=== PATIENT | male | born 1995 | race Caucasian/White ===

== ENCOUNTER 2017-05-28 01:38 | Emergency (ER) | payer OTHER ==
[~2017-05-28] VITALS: Ht 182.9 cm; Wt 92.2 kg
[2017-05-28 01:44] VITALS: TEMP 36.7; Ht 182.9 cm; Wt 92.2 kg
[2017-05-28] MEDS ORDERED: ALBUTEROL HFA 8 GM INHALER INH STA (01:49)
[2017-05-28] MEDS ORDERED: ALBUT/IPRATROP 3MG/0.5MG NEB 3 ML VIAL INH STA (01:49)
[2017-05-28] MEDS ORDERED: DEXAMETHASONE **PF** INJ 10 MG/ML VIAL PO ONE (02:00)
[2017-05-28] MEDS ORDERED: VNTHFA/IN INH (02:12)
[2017-05-28] MEDS ORDERED: PRED50TA PO (02:41)
--- NOTE | 2017-05-28 02:47 | EMERGENCY ROOM VISIT NOTE ---
History First contact with patient: 01:47 Chief Complaint: RESPIRATORY PROBLEMS Stated Complaint: ASTHMA History of Present Illness The patient is a 21 year old male who presents to the Emergency Room with complaints of cough and wheezing for the past day. Patient was sick recently. Patient denies productive cough, chest pain, fever, chills, flulike illness. He is out of his inhaler. Review of Systems An 10 system review of systems was completed with positives and pertinent negatives listed in the HPI. Past Medical/Surgical History Asthma Social History Smoking Status: Former Smoker Drug Use: none Occupation Status: employed Current/Historical Medications Scheduled Prednisone (Prednisone), 50 MG PO DAILY Scheduled PRN Albuterol Hfa (Ventolin Hfa), 2 PUFFS INH DIRECTED PRN for Shortness of Breath Physical Exam Vital Signs Date Time Temp Pulse Resp B/P (MAP) Pulse Ox O2 Delivery O2 Flow Rate FiO2 05/28/17 01:55 Room Air 05/28/17 01:44 36.7 86 18 128/83 99 Room Air Physical Exam PHYSICAL EXAM: Vital Signs: Reviewed Nurse's notes. Oxygen saturation was 99% on room air. GENERAL: Pleasant male, Alert, oriented and coherent. The patient is able to speak in complete sentences. NECK: Supple, non-tender. CHEST: Symmetrical expansion. no retractions no accessory muscle use. HEART: Regular rate and normal heart sounds, no murmur, gallop or rub. LUNGS: Breath sounds equal but significantly diminished in intensity on both sides. Bilateral wheezes heard but no rales or pleuritic rub. SKIN: The skin was without rashes, erythema, edema, or bruising. There is no tenting of the skin. Capillary reflex less than 2 seconds. HEAD: Normocephalic atraumatic. EARS: External auditory canals clear, tympanic membranes pearly beltran without erythema or effusion bilaterally. EYES: Pupils equal round and reactive to light and accommodation. Conjunctivae without injection, sclerae without icterus. Extraocular movements intact. NOSE: Patent, turbinates without inflammation or discharge. No sinus tenderness. MOUTH: Mucous membranes moist. Pharynx without erythema or exudate. Uvula midline. Airway patent. Tongue does not deviate. ABDOMEN: Positive bowel sounds x 4. Normal tympanic percussion. Soft, nontender, without masses or organomegaly. Bergeron sign negative. No guarding or rebound tenderness. MUSCULOSKELETAL: No muscle atrophy, erythema, or edema noted. NEURO: Patient was alert and oriented to person place and time. Normal sensation to light and sharp touch. No focal neurological deficits. EMERGENCY DEPARTMENT COURSE: I examined the patient. The patient was given an albuterol/atrovent nebulizer treatment and had good improvement in the subjective state, and the breath sounds were louder and clearer on re-exam. Wheezes were decreased. []. The patient was discharged in stable condition. DIAGNOSIS: Acute asthma exacerbation DISCHARGE INSTRUCTIONS AND TREATMENT: Prednisone 50 mg each day for 4 more days. Albuterol as needed for cough. Continue on her current medications. Followup with family in one to 2 days. Return to ER sooner for fever, worsening signs or symptoms.I Medical Decision & Procedures Medications Administered Medications (Trade) Dose Ordered Sig/Ashish Route Start Time Stop Time Status Last Admin Dose Admin Albuterol/ Ipratropium (Duoneb) 3 ml NOW STAT INH 05/28/17 01:49 05/28/17 01:50 DC 05/28/17 02:02 3 ML Albuterol (Ventolin Hfa Inhaler) 2 puffs ONE STAT INH 05/28/17 01:49 05/28/17 01:50 DC 05/28/17 02:01 2 PUFFS Dexamethasone Sodium Phosphate (Dexamethasone Inj Pf) 10 mg NOW ONCE PO 05/28/17 02:00 05/28/17 02:01 DC 05/28/17 02:01 10 MG ED Course Prior records/ancillary studies reviewed. Triage Nursing notes reviewed. The patient's history was concerning for respiratory difficulties. Differential diagnosis: Etiologies such as infections, reactive airway disease, pneumonia, pneumothorax , COPD, CHF, cardiac ischemia, pulmonary embolism, musculoskeletal, gastrointestinal, as well as others were entertained. Physical examination: As above. ER treatment provided: Nebulizer, Decadron, albuterol On reassessment the patient felt better. Diagnostic interpretation by me: Deferred This appears to be consistent with asthma exacerbation. Patient was recently sick. He is currently afebrile and nontoxic. Pulse ox is 99%. Nonproductive cough. Patient felt much better after being medicated as above. He is no longer wheezing. He was advised to take medicines as directed, rest, stay well- hydrated follow-up family can a few days or here in the ER sooner for chest pain , difficulty breathing, fevers, worsening signs or symptoms or as needed.. By the evaluation outlined above emergent etiologies such as CHF, cardiac ischemia , pulmonary embolism, pneumonia, pneumothorax, musculoskeletal, serious bacterial infections, as well as others were deemed relatively unlikely. The pt informed about the findings as listed above. All questions were answered and pleased with the treatment. Return instructions were outlined and the patient was discharged in stable condition. Outpatient prescription management: Prednisone Referral: The patient was referred back to their primary care physician for follow-up in 2 to 3 days for a recheck of the current condition. The chart was completed utilizing [id number] Speech voice recognition software. Grammatical errors, random word insertions, pronoun errors, and incomplete sentences are an occassional consequence of this system due to software limitations, ambient noise, and hardware issues. Any formal questions or concerns about the content, text, or information contained within the body of this dictation should be directly addressed to the physician assistant women's rowing coach for clarification. Medical Decision as above Medication Reconcilliation Current Medication List: was personally reviewed by me Blood Pressure Screening Patient's blood pressure: Normal blood pressure Impression Primary Impression: Asthma exacerbation Departure Information Dispostion Home / Self-Care Condition GOOD Prescriptions Prednisone (Prednisone) 50 Mg Tab 50 MG PO DAILY for 4 Days, #4 TAB Prov: Susanne Longoria .VENKATA 05/28/17 Forms WORK / SCHOOL INSTRUCTIONS, HOME CARE DOCUMENTATION FORM, IMPORTANT VISIT INFORMATION Patient Instructions Asthma - [facility], [facility] Additional Instructions Albuterol Inhaler: Take 2 puffs four times daily for five days, then as needed. Prednisone 50mg: Once daily until the prescription is finished. It is best to take this earlier in the day as some patients note occasional difficulty falling asleep when taken in the late evening. Acetaminophen(Tylenol) may be used for fever or pain. Use 1000mg every six hours as needed. Avoid using more than 3000mg in a 24 hour period. (AND/OR) Ibuprofen(Motrin, Advil) may be used for fever or pain. Use 600mg every six hours as needed. Take with food. Avoid using more than 2400mg in a 24 hour period. Do not use 2400mg per day for more than three consecutive days without physician direction. Prolonged inappropriate use can lead to stomach upset or ulcers. Rest and drink plenty of fluids. Avoid smoke/smoking, fumes, dust, or any triggers in the past that may have affected your breathing. Continue current medications. Return to the ER for chest pain, difficulty breathing, fevers, vomiting, worsening of your condition, or as needed. Follow up with your primary physician this week for a recheck of your current condition. Problem Qualifiers Primary Impression: Asthma exacerbation Asthma severity: moderate Asthma persistence: persistent Qualified Codes: J45.41 - Moderate persistent asthma with (acute) exacerbation
[2017-05-28 02:56] VITALS: BP 123/81; PULSE 72; O2SAT 96
== END 2017-05-28 02:57 | disposition home or self-care (01) ==
LOC: C.EDB 01:40
DX: J45.41 Moderate persistent asthma with (acute) exacerbation (principal); Z87.891 Personal history of nicotine dependence

== ENCOUNTER 2017-06-24 16:53 | Emergency (ER) | payer OTHER ==
[~2017-06-24] VITALS: Ht 182.9 cm; Wt 90.0 kg
[~2017-06-24 16:53] MED LIST: VNTHFA/IN INH
[2017-06-24 16:56] VITALS: TEMP 36.7; Ht 182.9 cm; Wt 90.0 kg
--- NOTE | 2017-06-24 18:33 | DIAGNOSTIC IMAGING REPORT ---
L-SPINE MIN 4 VIEWS ROUTINE CLINICAL HISTORY: 21 years-old Male presenting with LBP s/p fall. TECHNIQUE: Frontal, bilateral oblique, and lateral views of the lumbar spine were obtained. COMPARISON: None. FINDINGS: No significant scoliosis. Normal lumbar lordosis. Vertebral bodies maintain normal height and alignment. Intervertebral disc heights preserved no significant degenerative change. No compression deformity or evidence of subluxation. No pars defect. IMPRESSION: Normal lumbar spine. Electronically signed by: Esteban Payne M.D. 06/24/2017 6:32 PM Dictated Date/Time: 06/24/2017 6:30 PM
[2017-06-24] MEDS ORDERED: VNTHFA/IN INH (18:55)
[2017-06-24] MEDS ORDERED: CYCL10TA6 PO (18:55)
[2017-06-24] MEDS ORDERED: FLEXERIL HOME PACK 10 MG VIAL PO ONE (19:00)
[2017-06-24 19:14] VITALS: BP 123/74; PULSE 102; O2SAT 94
--- NOTE | 2017-06-24 19:39 | EMERGENCY ROOM VISIT NOTE ---
History First contact with patient: 17:57 Chief Complaint: BACK PAIN Stated Complaint: LOWER BACK PAIN History of Present Illness The patient is a 21 year old male who presents to the Emergency Room with complaints of lower back pain after slipping and falling down steps at work last Sunday between 6 and 7 PM. The patient reports that he was carrying food down steps when he slipped and fell directly on his buttocks. The patient reports persistent pain. The patient reports that he did feel little bit better this morning, and as he was cleaning his vehicle, he reports abrupt onset of discomfort and pain with movement. He currently reports some mild burning and paresthesias through bilateral buttocks and posterior thighs. The pain does not radiate below the knees. He reports that the pain feels like it is spreading across the lower back and slightly into the middle back region. He denies any worsening pain with bowel movements. He denies any bladder or bowel incontinence, saddle anesthesias or lower extremity weakness. He denies any prior history of back issues, and rates his discomfort an 8 out of 10. 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 Review of Systems 10 system review was performed and was negative except for pertinent positives and negatives as indicated in history of present illness Past Medical/Surgical History Medical Problems: (1) Asthma (2) Personal History Of Nicotine Dependence Surgical Problems: (1) No history of previous surgery Family History Unremarkable Social History Smoking Status: Former Smoker Alcohol Use: occasionally Drug Use: none Marital Status: single Occupation Status: employed Current/Historical Medications Scheduled Albuterol Hfa (Ventolin Hfa), 2 PUFFS INH QID Scheduled PRN Albuterol Hfa (Ventolin Hfa), 2 PUFFS INH DIRECTED PRN for Shortness of Breath Cyclobenzaprine Hcl (Flexeril), 10 MG PO TID PRN for spasm Physical Exam Vital Signs Date Time Temp Pulse Resp B/P (MAP) Pulse Ox O2 Delivery O2 Flow Rate FiO2 06/24/17 19:14 102 16 123/74 94 06/24/17 16:56 36.7 102 16 123/74 94 Room Air Physical Exam CONSTITUTIONAL: Healthy and well nourished. Alert and oriented X 3 with positive affect. Patient appears in mild discomfort. HEENT: Normocephalic, atraumatic. Pupils equal, round and reactive. NECK: Full active range of motion without discomfort. RESPIRATORY: Clear to auscultation bilaterally with no wheezing, crackles, rhonchi or stridor. CARDIOVASCULAR: Regular rate and rhythm with no murmurs, rubs or gallops. GASTROINTESTINAL: Bowel sounds present in all quadrants. Soft and nontender to palpation. MUSCULOSKELETAL: Examination shows mild tenderness to palpation through the lower lumbar paraspinous muscles, central lumbar spine, SI joints and sciatic notches. Negative logroll. Positive straight leg raise. Ankle plantar/ dorsiflexion strength is 5 out of 5 and symmetric bilaterally. INTEGUMENTARY: No rash or other significant dermatologic conditions noted. NEUROLOGIC: Cranial nerves II-XII grossly intact. No focal neurologic deficits noted. Lower extremity deep tendon reflexes are 2+ and symmetric bilaterally. Feet and toes are sensory intact. Medical Decision & Procedures ER Provider Diagnostic Interpretation: My interpretation of lumbar spine x-rays does not show any acute fractures, spondylolisthesis or lordotic reversal. Radiologist report is as follows: L-SPINE MIN 4 VIEWS ROUTINE CLINICAL HISTORY: 21 years-old Male presenting with LBP s/p fall. TECHNIQUE: Frontal, bilateral oblique, and lateral views of the lumbar spine were obtained. COMPARISON: None. FINDINGS: No significant scoliosis. Normal lumbar lordosis. Vertebral bodies maintain normal height and alignment. Intervertebral disc heights preserved no significant degenerative change. No compression deformity or evidence of subluxation. No pars defect. IMPRESSION: Normal lumbar spine. Medications Administered Medications (Trade) Dose Ordered Sig/Ashish Route Start Time Stop Time Status Last Admin Dose Admin Cyclobenzaprine HCl (FLEXERIL 10MG Home Pack) 1 homepack UD ONCE PO 06/24/17 19:00 06/24/17 19:01 DC 06/24/17 19:05 1 HOMEPACK ED Course Patient history and physical exam were performed. Nurse's notes were reviewed. Vital signs were reviewed and were normal. The patient refused any analgesics on initial exam. X-rays of the lumbar spine were normal. The patient will be provided a prescription for Flexeril. He was encouraged alternate ibuprofen and Tylenol as needed for additional baseline pain relief. He was provided a note for no lifting greater than 20 pounds for the next 5 days. He was instructed to follow-up with his Worker's Compensation physician if symptoms are not improving within the next 5 days. The patient was happy with plan of care, and voiced understanding of all discharge instructions. Medical Decision Medication Reconcilliation Current Medication List: was personally reviewed by me Blood Pressure Screening Patient's blood pressure: Normal blood pressure Impression Primary Impression: Strain of lumbar region Additional Impressions: Fall down steps Work related injury Departure Information Prescriptions Albuterol Hfa (VENTOLIN HFA) 200 Puffs/12600 Mcg Aers 2 PUFFS INH QID, #1 INHALER Prov: Rafael Roe PA 06/24/17 Cyclobenzaprine Hcl (FLEXERIL) 10 Mg Tab 10 MG PO TID Y for spasm, #15 TAB Prov: Rafael Roe PA 06/24/17 Referrals Marques Dial M.D. (PCP) Patient Instructions My [facility] Problem Qualifiers Primary Impression: Strain of lumbar region Encounter type: initial encounter Qualified Codes: S39.012A - Strain of muscle, fascia and tendon of lower back, initial encounter Additional Impressions: Fall down steps Encounter type: initial encounter Qualified Codes: W10.8XXA - Fall (on) ( from) other stairs and steps, initial encounter
== END 2017-06-24 19:14 | disposition home or self-care (01) ==
LOC: C.EDB 16:54 → C.EDD 19:14
DX: S39.012A Strain of muscle, fascia and tendon of lower back, initial encounter (principal); W10.8XXA Fall (on) (from) other stairs and steps, initial encounter; J45.909 Unspecified asthma, uncomplicated; Z87.891 Personal history of nicotine dependence

== ENCOUNTER 2017-07-03 00:10 | Emergency (ER) | payer OTHER ==
[~2017-07-03] VITALS: Ht 182.9 cm; Wt 69.4 kg
[~2017-07-03 00:10] MED LIST changes: +CYCL10TA6 PO
[2017-07-03 00:20] VITALS: TEMP 36.7; Ht 182.9 cm; Wt 69.4 kg
[2017-07-03] MEDS ORDERED: FLUT0.15 NAE (00:28)
[2017-07-03] MEDS ORDERED: ALBUT/IPRATROP 3MG/0.5MG NEB 3 ML VIAL INH ONE (00:45)
[2017-07-03 00:57] VITALS: PULSE 110; O2SAT 93
--- NOTE | 2017-07-03 01:08 | EMERGENCY ROOM VISIT NOTE ---
History Report prepared by Junior: Debra Espino Under the Supervision of: Dr. Ritchie Cruz M.D. First contact with patient: 00:33 Chief Complaint: RESPIRATORY PROBLEMS Stated Complaint: ASTHMA ATTACK Nursing Triage Summary: Pt states he has a Hx of asthma, had asthma attack around 1999 this evening. Pt states he uses his rescue inhaler 3-4 times a day, ran out of the inhaler this evening. Hx of smoking, quite 4 months ago. History of Present Illness The patient is a 21 year old male who presents to the Emergency Room with complaints of worsening respiratory problems starting 3.5 hours ago. The patient states that he has a history of asthma but ran out of his inhaler today. He reports that he has an appointment with his PCP in a month to attempt to get a nebulizer. The patient complains of coughing a lot and chest tightness. The patient notes that he used to smoke and quit 4 months ago, but his asthma has gotten worse since then. The patient denies leg swelling and a history of blood clots. Source of History: patient Onset: 3.5 hours ago Position: other (global) Quality: other (respiratory problems) Timing: worsening Associated Symptoms: + cough Note: The patient complains of chest tightness. The patient denies leg swelling. Review of Systems See HPI for pertinent positives & negatives. A total of 10 systems reviewed and were otherwise negative. Past Medical & Surgical Medical Problems: (1) Asthma (2) Personal History Of Nicotine Dependence Surgical Problems: (1) No history of previous surgery Family History No pertinent family history Social History Smoking Status: Former Smoker Alcohol Use: occasionally Drug Use: none Marital Status: single Housing Status: lives alone Occupation Status: employed Current/Historical Medications Scheduled Azithromycin (Zithromax Z-Chris), 1 PKT PO UD Fluticasone Propionate (Nasal) (Flonase Allergy Relief), 1 DOSE LEO DIRECTED Prednisone (Prednisone Tab), 0 PO DAILY Scheduled PRN Albuterol Hfa (Ventolin Hfa), 2 PUFFS INH DIRECTED PRN for Shortness of Breath Allergies Coded Allergies: Ondansetron (Verified Allergy, Severe, "SEVERE GI UPSET", 07/03/17) Physical Exam Vital Signs Date Time Temp Pulse Resp B/P (MAP) Pulse Ox O2 Delivery O2 Flow Rate FiO2 07/03/17 02:44 99 07/03/17 02:43 100 18 125/62 93 Room Air 07/03/17 01:56 102 18 131/72 96 Room Air 07/03/17 00:57 110 16 93 Room Air 21 07/03/17 00:30 Room Air 07/03/17 00:20 36.7 103 20 116/80 94 Room Air Physical Exam GENERAL: Patient is well appearing and in minimal distress. EYES: No scleral icterus, unremarkable pupils. ENT: Mucous membranes moist, no nasal congestion. NECK: No masses appreciated, no meningismus, trachea is midline. RESPIRATORY: Mildly dyspneic/tachypneic with diffuse expiratory wheezing and tight lung sounds. No rhonchi. CARDIOVASCULAR: Regular rate and rhythm. No murmurs, rubs, gallops appreciated. GASTROINTESTINAL: Abdomen soft, nontender, no peritonitis. Bowel sounds positive. No masses appreciated. BACK: No midline tenderness, no CVA tenderness EXTREMITIES: Normal motion all extremities, no cyanosis, no edema. NEUROLOGIC: Alert and oriented, no acute motor or sensory deficits, no focal weakness, cranial nerves grossly intact. SKIN: No rash, no jaundice, no diaphoresis. Medical Decision & Procedures Medications Administered Medications (Trade) Dose Ordered Sig/Ashish Route Start Time Stop Time Status Last Admin Dose Admin Albuterol/ Ipratropium (Duoneb) 12 ml ONE ONCE INH 07/03/17 00:45 07/03/17 00:46 DC 07/03/17 00:57 12 ML Prednisone (PredniSONE TAB) 60 mg NOW STAT PO 07/03/17 02:20 07/03/17 02:21 DC 07/03/17 02:39 60 MG Azithromycin (Zithromax Tab) 500 mg NOW STAT PO 07/03/17 02:20 07/03/17 02:21 DC 07/03/17 02:40 500 MG Albuterol (Ventolin Hfa Inhaler) 2 puffs NOW ONCE INH 07/03/17 02:30 07/03/17 02:31 DC 07/03/17 02:40 2 PUFFS ED Course 0036: The patient was evaluated in room A11B. A complete history and physical exam was performed. 0045: Ordered DuoNeb 12 ml INH. 0055: I reevaluated the patient and he his taking his DuoNeb now. 0141: I reevaluated the patient and his lungs sound like they have opened up considerably. He now has loud wheezing throughout. 0219: Reevaluated the patient and his O2 saturation is 92%. Discussed results and discharge instructions: He verbalized understanding and agreement. The patient is ready for discharge. 0220: Ordered Azithromycin 500 mg PO, Prednisone 60 mg PO. 0230: Ordered Albuterol 2 puffs INH. Medical Decision Differential: Infectious, Asthma, Pneumonia, Pneumothorax, Pulmonary Embolism, amongst other etiologies entertained. 21 yr old male arrives for evaluation of shortness of breath. Long history of asthma with a few exacerbations over last few months since quitting smoking. Clearly in asthma exacerbation on arrival. Vastly improved with hour neb. O2s in low mid 90s on re-evaluations though not dyspneic, improvement in lung sounds and patient comfortable. Suspect this is some VQ mismatch post prolonged nebulizer. He does not have evidence of PE by exam. His lungs are equal and cleared thus unlikely pneumonia nor pneumothorax. With smoking history and level of initial wheezing I feel that antibiotics are reasonable in this patient and thus will give Rx Zpack along with prolonged pred taper and to go inhaler. Reviewed symptoms requiring RTED. Stable and looks well at discharge. Medication Reconcilliation Current Medication List: was personally reviewed by me Blood Pressure Screening Patient's blood pressure: Normal blood pressure Blood pressure disposition: Did not require urgent referral Impression Primary Impression: Acute asthma exacerbation Scribe Attestation The scribe's documentation has been prepared under my direction and personally reviewed by me in its entirety. I confirm that the note above accurately reflects all work, treatment, procedures, and medical decision making performed by me. Departure Information Dispostion Home / Self-Care Prescriptions Prednisone (Prednisone Tab) 20 Mg Tab 0 PO DAILY, #18 TAB 3 TABS DAILY FOR 2 DAYS, THEN 2 TAB DAILY FOR 3 DAYS, THEN 1 TAB DAILY FOR 3 DAYS, THEN 1/2 TAB DAILY FOR 3 DAYS Prov: Ritchie Cruz M.D. 07/03/17 Azithromycin (ZITHROMAX Z-CHRIS) 250 Mg Tab 1 PKT PO UD, #1 PKT Prov: Ritchie Cruz M.D. 07/03/17 Referrals Marques Dial M.D. (PCP) Forms HOME CARE DOCUMENTATION FORM, IMPORTANT VISIT INFORMATION, WORK / SCHOOL INSTRUCTIONS Patient Instructions Asthma - [facility], My [facility] Additional Instructions It is important you follow up with your primary provider to discuss whether you should be on further medications or nebulizer for your asthma.
[2017-07-03] MEDS ORDERED: AZITHROMYCIN 250 MG TAB PO STA (02:20)
[2017-07-03] MEDS ORDERED: AZITTAB PO (02:22)
[2017-07-03] MEDS ORDERED: PRED20TA2 PO (02:22)
[2017-07-03] MEDS ORDERED: ALBUTEROL HFA 8 GM INHALER INH ONE (02:30)
[2017-07-03 02:43] VITALS: BP 125/62; PULSE 100
[2017-07-03 02:44] VITALS: O2SAT 99
== END 2017-07-03 02:45 | disposition home or self-care (01) ==
LOC: C.EDB 00:11 → C.EDA 02:45
DX: J45.901 Unspecified asthma with (acute) exacerbation (principal); Z87.891 Personal history of nicotine dependence